=== PATIENT | male | born 1945 | race Caucasian/White ===

== ENCOUNTER 2024-04-09 16:36 | Inpatient (IN) ==
[2024-04-09 17:42] LABS: Appearance Urine Clear (Clear); Bacteria Urine Automated None Seen (None Seen); Bilirubin Urine Negative (Negative); Blood Urine 3+ (Negative); Cast Urine Automated 0-2 /lpf (0-2); Color Urine Yellow; Epithelial Cell Urine Auto 0-2 /hpf (0-2); Glucose Urine UA Negative (Negative); Ketones Urine Negative (Negative); Leukocyte Esterase Urine 1+ (Negative); Nitrite Urine Negative (Negative); Protein Urine Negative (Negative); RBC Urine Automated >20 /hpf (0-2); Specific Gravity Urine 1.018 (1.000-1.030); Urobilinogen Urine Negative (Negative)
[2024-04-09 17:43] LABS: Basophils # (auto) 0.03 K/uL (0.00-0.20); Basophils % (auto) 0.4 %; Eosinophils # (auto) 0.19 K/uL (0.00-0.50); Eosinophils % (auto) 2.6 %; Immature Granulocytes # (auto) 0.03 K/uL (0.01-0.20); Immature Granulocytes % (auto) 0.4 %; Lymphocytes # (auto) 1.36 K/uL (1.20-3.40); Lymphocytes % (auto) 18.9 %; Mean Corpuscular Hemoglobin 31.3 pg (25.0-34.0); Mean Corpuscular Hgb Conc 34.1 g/dL (32.0-36.0); Mean Corpuscular Volume 91.9 fL (80.0-100.0); Mean Platelet Volume 9.7 fL (9.4-12.4); Monocytes # (auto) 0.82 K/uL (0.11-0.59); Monocytes % (auto) 11.4 %; Neutrophils # (auto) 4.78 K/uL (1.40-6.50); Neutrophils % (auto) 66.3 %; Platelet Count 162 K/uL (130-400); RDW Coefficient of Variation 13.6 % (11.5-14.5); RDW Standard Deviation 46.6 fL (36.4-46.3); Red Blood Count 4.79 M/uL (4.70-6.10); White Blood Count 7.21 K/ul (4.8-10.8)
[2024-04-09 18:08] LABS: Albumin Globulin Ratio 1.5 (0.9-2); BUN Creatinine Ratio 14.8 (10-20); Calcium 9.6 mg/dl (8.6-10.3); Creatinine Clr Calc Pharmacy 37.9 ml/min; Globulin 2.7 gm/dl (2.5-4.0); Potassium 4.9 mmol/L (3.5-5.1); Total Protein 6.7 gm/dl (6.0-8.3)
[2024-04-09 18:10] LABS: Prothrombin Time 10.5 Seconds (9.0-12.0)
[2024-04-09] MEDS: OPTIRAY 320 100ml IV ONE (19:21)
--- NOTE | 2024-04-09 19:51 | Emergency Department Note ---
Impression & Plan Acute right flank pain, Hydroureteronephrosis, Right ureteral calculus, CKD (chronic kidney disease) ED Provider Note HISTORY OF PRESENT ILLNESS: Patient is a 78-year-old male presenting with right flank pain. Patient reports that he was at [facility] yesterday and diagnosed with a 7 mm kidney stone. He was planning to be transferred to [facility], but he states "I was told that the transport would be taking a while." He states that he was discharged from the hospital and he called his doctor who referred him to [facility] emergency department for urology consultation. Patient reports that he has not had pain since getting pain medications yesterday. He denies any dysuria or hematuria. Denies any fevers. Denies any nausea or vomiting. He reports he has a history of abdominal aortic aneurysm but has not had a monitoring of this in a while. He denies any chest pain or shortness of breath. ROS: as above PHYSICAL EXAM: Constitutional: Patient appears in no acute distress. HENT: Head: Normocephalic and atraumatic. Eyes: EOMI, PERRL Mouth/Throat: Mucous membranes moist. Neck: Trachea midline. Neck supple. Cardiovascular: RRR, No murmurs, rubs or gallops. Intact distal pulses. Pulmonary/Chest: No respiratory distress. Breath sounds clear and equal bilaterally. No wheezes or rales. Abdominal: Abdomen soft, no tenderness, rebound or guarding. Back: No midline spinal tenderness, no paraspinal tenderness, no CVA tenderness. Musculoskeletal: No edema, tenderness or deformity noted. Skin: Warm and dry. No rash, erythema, pallor or cyanosis Psychiatric: Appropriate mood and affect for situation. Neurological: Alert and keenly responsive. CN II-XII grossly intact, moving all extremities equally and fully. MDM: - Vitals signs showed hypertension - History obtained via patient. History as above. - Chronic conditions affecting care: none - Differential diagnoses include, but are not limited to: aortic dissection; UTI; pyelonephritis; ureteral stone; cholecystitis - Order placed for continuous cardiac monitoring. At this time, monitor showed rate of 61 bpm with normal sinus rhythm, per my interpretation. - External medical records reviewed. - Laboratory workup interpreted by myself showed normal WBC; normal PT/INR; stable electrolytes; elevated total bilirubin (2.0); CKD (Cr 1.82); normal lipase - UA negative for infection - CT abdomen/pelvis with IV contrast showed 7 mm stone in the right UVJ with right hydroureteronephrosis. - Discussed case with Bobby Nava PA-C with urology at 20:20. Reports patient can be admitted to medicine service and tentative plan for urological procedure tomorrow. - Discussion was had with community case manager about patient's case and need for admission - Hospitalist, Dr. Morgan, consulted for admission - [facility] ASSESSMENT AND PLAN: Diagnosis: acute right flank pain; right hydroureteronephrosis; right ureteral stone; CKD Plan: admit Past Med/Surg History Problem List (Updated 04/09/24 @ 22:07 by Clara Palumbo MD) CKD (chronic kidney disease) (Acute) Right ureteral calculus (Acute) Hydroureteronephrosis (Acute) Acute right flank pain (Acute) Nephrolithiasis Social History Smoking Status: Never smoker Feels Safe at Home: Yes Allergies Allergies Allergy/AdvReac Type Severity Reaction Status Date / Time Penicillins Allergy Unknown Verified 04/09/24 21:15 Results & Data (ED) Vital Signs Vital Signs - 24 hr 04/09/24 17:16 04/09/24 19:30 04/09/24 21:00 Temperature 36.2 C L Temperature Source Temporal Artery Scan Pulse Rate 58 L Pulse Rate [Apical] 67 61 Respiratory Rate 18 18 18 Respiratory Effort / Characteristics Non-Labored Respiratory Depth Normal Respiratory Pattern Regular Blood Pressure 151/88 H Blood Pressure [Right Arm] 138/92 157/86 H Blood Pressure Mean 109 Blood Pressure Mean [Right Arm] 107 109 Pulse Oximetry 96 97 99 Oxygen Delivery Method Room Air Room Air Room Air Sepsis Recent Fever Within 48 Hours No Sepsis New/Unexplained Change in Mental Status N/A Sepsis Action Taken by Nursing No Action Required Laboratory Data 04/09/24 17:25 04/09/24 17:25 Lab Results 04/09/24 04/09/24 Range/Units 17:25 Unknown WBC 7.21 (4.8-10.8) K/ul RBC 4.79 (4.70-6.10) M/uL Hgb 15.0 (14.0-18.0) g/dl Hct 44.0 (42.0-52.0) % MCV 91.9 (80.0-100.0) fL MCH 31.3 (25.0-34.0) pg MCHC 34.1 (32.0-36.0) g/dL RDW Std Deviation 46.6 H (36.4-46.3) fL RDW Coeff of Darci 13.6 (11.5-14.5) % Plt Count 162 (130-400) K/uL MPV 9.7 (9.4-12.4) fL Immature Gran % (Auto) 0.4 % Neut % (Auto) 66.3 % Lymph % (Auto) 18.9 % Dyer % (Auto) 11.4 % Eos % (Auto) 2.6 % Baso % (Auto) 0.4 % Neut # (Auto) 4.78 (1.40-6.50) K/uL Lymph # (Auto) 1.36 (1.20-3.40) K/uL Dyer # (Auto) 0.82 H (0.11-0.59) K/uL Eos # (Auto) 0.19 (0.00-0.50) K/uL Baso # (Auto) 0.03 (0.00-0.20) K/uL Immature Gran # (Auto) 0.03 (0.01-0.20) K/uL PT 10.5 (9.0-12.0) Seconds INR 1.0 (0.9-1.1) Sodium 140 (136-145) mmol/L Potassium 4.9 (3.5-5.1) mmol/L Chloride 109 H (98-107) mmol/L Carbon Dioxide 25 (21-32) mmol/L Anion Gap 6 (3-11) BUN 27 H (6-23) mg/dl Creatinine 1.82 H (0.6-1.4) mg/dl Est Cr Clr Drug Dosing 37.9 ml/min eGFR 38.02 BUN/Creatinine Ratio 14.8 (10-20) Glucose 106 H (70-99(Fasting)) mg/dl Lactate 1.4 (0.4-2.0) mmol/L Calcium 9.6 (8.6-10.3) mg/dl Total Bilirubin 2.0 H (0.2-1.0) mg/dl AST 14 (13-39) U/L ALT 11 (7-52) U/L Alkaline Phosphatase 51 (34-104) U/L Total Protein 6.7 (6.0-8.3) gm/dl Albumin 4.0 (3.4-5.0) gm/dl Globulin 2.7 (2.5-4.0) gm/dl Albumin/Globulin Ratio 1.5 (0.9-2) Lipase 52 (11-82) U/L Urine Color Yellow Urine Appearance Clear (Clear) Urine pH 5.0 (4.5-7.5) Ur Specific [place] 1.018 (1.000-1.030) Urine Protein Negative (Negative) Urine Glucose (UA) Negative (Negative) Urine Ketones Negative (Negative) Urine Blood 3+ H (Negative) Urine Nitrite Negative (Negative) Urine Bilirubin Negative (Negative) Urine Urobilinogen Negative (Negative) Ur Leukocyte Esterase 1+ H (Negative) Urine WBC (Auto) 11-20 H (0-5) /hpf Urine RBC (Auto) >20 H (0-2) /hpf U Hyaline Cast (Auto) 0-2 (0-2) /lpf U Epithel Cells (Auto) 0-2 (0-2) /hpf Urine Bacteria (Auto) None Seen (None Seen) Administered Medications Discontinued Medications Ioversol (Optiray 320 100ml) 91 ml IV ONCE ONE Stop: 04/09/24 19:22 Last Admin: 04/09/24 19:21 Dose: 91 ml Documented By: NORMA Miscellaneous Information (Patient's Allergy Info Needs Entered) 1 each N/A NOW STA Stop: 04/09/24 21:06 Last Admin: 04/09/24 21:25 Dose: Not Given Documented By: REBECCA Tamsulosin HCl (Tamsulosin Hcl 0.4 Mg Cap) 0.4 mg PO NOW ONE Stop: 04/09/24 21:03 Last Admin: 04/09/24 21:35 Dose: 0.4 mg Documented By: REBECCA Imaging Data Radiologist's Impression: Abdomen/Pelvis CT 04/09/24 17:08 Exam(s): CT ABDOMEN + PELVIS With Contrast IV Amt: 91 ml opti 320 EXAM: CT Abdomen and Pelvis With Intravenous Contrast CLINICAL HISTORY: Reason for exam: flank pain. TECHNIQUE: Axial computed tomography images of the abdomen and pelvis with intravenous contrast. CTDI is 18.98 mGy and DLP is 963.87 mGy-cm. Automated exposure control was utilized for the study. A dose lowering technique was utilized adhering to the principles of ALARA. CONTRAST: Patient received 91 ml opti 320 of IV contrast COMPARISON: None FINDINGS: Lung bases: Unremarkable. No mass. No consolidation. Mediastinum: Small hiatal hernia. ABDOMEN: Liver: Small hepatic cysts. Some of the hypodensities in the liver are too small to definitively characterize. Gallbladder and bile ducts: Unremarkable. No calcified stones. No ductal dilation. Pancreas: Unremarkable. No mass. No ductal dilation. Spleen: Unremarkable. No splenomegaly. Adrenals: Unremarkable. No mass. Kidneys and ureters: 7 mm stone in the region of the right UVJ. Mild right hydroureteronephrosis. Punctate inferior right renal stone. Small hypodensities in the kidneys are too small to definitively characterize. Punctate nonobstructing left renal stone. No hydronephrosis or ureteral stone on the left. Stomach and bowel: Evaluation of the stomach is limited by underdistention. Diverticulosis without evidence of diverticulitis. No small bowel obstruction. PELVIS: Appendix: Normal appendix. Bladder: 7 mm stone in the region of the right UVJ. Reproductive: Unremarkable as visualized. ABDOMEN and PELVIS: Intraperitoneal space: Unremarkable. No free air. No significant fluid collection. Bones/joints: Degenerative changes of the spine. Grade 1 anterolisthesis of L4 on L5. No acute fracture. No dislocation. Soft tissues: Small fat-containing umbilical hernia. Vasculature: Atherosclerotic changes of the vasculature. 4.3 cm distal abdominal aortic aneurysm. No aortic dissection. Lymph nodes: Unremarkable. No enlarged lymph nodes. IMPRESSION: 1. 7 mm stone in the region of the right UVJ. Mild right hydroureteronephrosis. Punctate inferior right renal stone. 2. Punctate nonobstructing left renal stone. No hydronephrosis or ureteral stone on the left. 3. Atherosclerotic changes of the vasculature. 4.3 cm distal abdominal aortic aneurysm. No aortic dissection. Electronically signed by: Krys Dinh M.D. 04/09/24 20:15 PM Discharge Plan Visit Data Chief Complaint: Kidney Stone Stated Complaint: REF BY DOC,KIDNEY STONE ED Provider: Polinski,Clara Z. Discharge Problem: Acute right flank pain, Hydroureteronephrosis, Right ureteral calculus, CKD (chronic kidney disease) Forms Stand Alone Forms: My [facility] Referrals Referrals: Walt Stevenson M.D. [Primary Care Provider] -
--- NOTE | 2024-04-09 20:16 | CT Scan Report ---
Exam(s): CT ABDOMEN + PELVIS With Contrast IV Amt: 91 ml opti 320 EXAM: CT Abdomen and Pelvis With Intravenous Contrast CLINICAL HISTORY: Reason for exam: flank pain. TECHNIQUE: Axial computed tomography images of the abdomen and pelvis with intravenous contrast. CTDI is 18.98 mGy and DLP is 963.87 mGy-cm. Automated exposure control was utilized for the study. A dose lowering technique was utilized adhering to the principles of ALARA. CONTRAST: Patient received 91 ml opti 320 of IV contrast COMPARISON: None FINDINGS: Lung bases: Unremarkable. No mass. No consolidation. Mediastinum: Small hiatal hernia. ABDOMEN: Liver: Small hepatic cysts. Some of the hypodensities in the liver are too small to definitively characterize. Gallbladder and bile ducts: Unremarkable. No calcified stones. No ductal dilation. Pancreas: Unremarkable. No mass. No ductal dilation. Spleen: Unremarkable. No splenomegaly. Adrenals: Unremarkable. No mass. Kidneys and ureters: 7 mm stone in the region of the right UVJ. Mild right hydroureteronephrosis. Punctate inferior right renal stone. Small hypodensities in the kidneys are too small to definitively characterize. Punctate nonobstructing left renal stone. No hydronephrosis or ureteral stone on the left. Stomach and bowel: Evaluation of the stomach is limited by underdistention. Diverticulosis without evidence of diverticulitis. No small bowel obstruction. PELVIS: Appendix: Normal appendix. Bladder: 7 mm stone in the region of the right UVJ. Reproductive: Unremarkable as visualized. ABDOMEN and PELVIS: Intraperitoneal space: Unremarkable. No free air. No significant fluid collection. Bones/joints: Degenerative changes of the spine. Grade 1 anterolisthesis of L4 on L5. No acute fracture. No dislocation. Soft tissues: Small fat-containing umbilical hernia. Vasculature: Atherosclerotic changes of the vasculature. 4.3 cm distal abdominal aortic aneurysm. No aortic dissection. Lymph nodes: Unremarkable. No enlarged lymph nodes. IMPRESSION: 1. 7 mm stone in the region of the right UVJ. Mild right hydroureteronephrosis. Punctate inferior right renal stone. 2. Punctate nonobstructing left renal stone. No hydronephrosis or ureteral stone on the left. 3. Atherosclerotic changes of the vasculature. 4.3 cm distal abdominal aortic aneurysm. No aortic dissection. Electronically signed by: Krys Dinh M.D. 04/09/24 20:15 PM
--- NOTE | 2024-04-09 20:47 | Urology Consultation ---
Date of Consultation April 09, 2024 Assessment & Plan (1) Nephrolithiasis: I discussed with the treating emergency room physician the patient is being admitted on the hospital service. From a urologic perspective we recommend the following: Provide analgesics provide antiemetics hydrate with IV fluids Would recommend initiating Flomax for expulsive therapy The patient does have an abnormal urinalysis and a urine culture has been sent. Would recommend monitoring the patient's culture results and initiate antibiotics as indicated Patient does have a creatinine of 1.8. As the patient receives his medical care through the [facility] we do not have comparison labs available we will therefore avoid nephrotoxins and repeat labs in the morning Would implement n.p.o. status Patient be reassessed the morning of 04/10/[address] Dustin Campos of [facility] physician group urology and a determination be made if patient will require cystoscopic intervention Additional recommendations with forthcoming based on his clinical course as it unfolds History of Present Illness Reason for Consultation: Nephrolithiasis History of Present Illness This is a 78-year-old male who presented to the emergency department secondary to right-sided flank pain. The patient says that the pain began approximate 24 hours ago. He has no prior history of kidney stones and has never experienced pain like this before. He does note that the pain was confined to his right flank without radiation. He did not report any modifying factors other than medicines that were administered at a previous facility (he did initially seek care at [facility]). Patient denies any nausea or vomiting. He has not had any fevers, shakes, or chills. He does report some dysuria at the end of his urine stream and denies any hematuria. He says he does have a urologist to do boys, but was directed to [facility] by the staff at the [facility]. Since arrival to the emergency department this man has had labs and imaging which I independently reviewed. He did have a CT scan of the abdomen pelvis that shows he has a 7 mm kidney stone at the right ureterovesical junction with right-sided hydronephrosis. Labs include a CBC were white blood cell count, hemoglobin, hematocrit, platelet count were normal. Coagulation studies were normal. Chemistry profile showed sodium and potassium are normal. His BUN and creatinine were 27 and 1.8. (Patient had no prior visits that would allow for labs to be compared). The urinalysis was negative for nitrites. It did have 1+ leukocyte Estrace and 11-20 white blood cells per high-power field. There is no bacteria on the study. At the time of my interview he was resting comfortably bed and he was in no distress. Patient History Social History Smoking Status: Never smoker Feels Safe at Home: Yes Review of Systems Review of Systems: All systems reviewed & are unremarkable except as noted in HPI & below Physical Exam Constitutional: WD/WN, vitals as above Eyes: no conjunctival abnormality ENMT: Ears: no hearing impairment and no external ear abnormality Mouth: + oropharynx abnormality Neck: trachea midline Respiratory: normal respiratory effort; no respiratory distress and no labored breathing Cardiovascular: Rate/Rhythm: regular rate and regular rhythm Gastrointestinal (Abdomen): Soft and nontender. Musculoskeletal: No calf tenderness Skin: no rashes Neurologic: moves all extremities Psychiatric: A+Ox3, euthymic affect Genitourinary: At the time of my interview the patient had no CVA tenderness with percussion bilaterally Results & Data Vital Signs (Past 12 Hours) Vital Signs Temp Pulse Pulse Resp BP BP Pulse Ox 04/09/24 19:30 67 18 138/92 97 04/09/24 17:16 36.2 C L 58 L 18 151/88 H 96 O2 Del Method 04/09/24 19:30 Room Air 04/09/24 17:16 Room Air PG Care Time/CCT Total # of Minutes Spent Total Time Spent with Patient: Total time spent is greater than 50% in coordination of care (as documented) at patient's floor/unit and/or counseling patient: Coding Level of Care Code 01072 INT INP/OBS CARE 375MIN Diagnoses Nephrolithiasis N20.0
[2024-04-09] MEDS: Patient's ALLERGY Info needs ENTERED STA (21:25)
[2024-04-09] MEDS ORDERED: oxyCODONE HCL IR 5 MG TAB (IMMEDIATE RELEASE) PO PRN (21:29)
[2024-04-09] MEDS ORDERED: ACETAMINOPHEN 325 MG TAB PO PRN (21:29)
[2024-04-09] MEDS ORDERED: PROMETHAZINE 6.25 MG/50.25 ML BAG IV PRN (21:29)
--- NOTE | 2024-04-09 21:31 | History & Physical Report ---
Date of Service April 09, 2024 Assessment & Plan (1) ARF (acute renal failure): Plan: Secondary to obstructive uropathy No sepsis for now hypertension, GERD, stable on PPI AAA incidental finding on imaging Past tobacco abuse MedSurg Monitor creatinine response to IVF Strain urine Urology consult re: obstructing kidney stone (Patient already seen by provider at the ER who recommends Flomax and n.p.o. status in anticipation of procedure in a.m.) Outpatient surveillance follow-up imaging for AAA and vascular surgery consultation. DVT prophylaxis. SCDs Full code Text document was generated using [employer] voice recognition software. It may contain grammatical or spelling errors. Kindly contact undersigned for clarification of any documentation item in question. History of Present Illness Chief Complaint: Kidney stone Primary Care Provider: Walt Stevenson History obtained from patient and records. Medical history significant for hypertension, GERD, urolithiasis, past tobacco abuse. Patient woke up yesterday with achy left flank pain going to his belly. No hematuria, no fever, no chills. No chest pain, no SOB. No prior episodes. Patient seen at [facility] ER. CT showed kidney stones with blockage. Patient left ER because they were waiting too long. He was advised to call local urologist from [place]. Provider recommended he go to [facility] for urology services. Medical History as above Surgical History : Hernia surgery Family History : Hypertension, DM Personal/Social history : Past tobacco abuse, occasional EtOH intake, retired from factory work (light bulbs) Allergies Allergy/AdvReac Type Severity Reaction Status Date / Time Penicillins Allergy Unknown Verified 04/09/24 21:15 Home Medications Medication Instructions Recorded Confirmed Type ketorolac 10 mg tablet 10 mg PO Q6 PRN Pain 04/09/24 04/09/24 History meloxicam 15 mg tablet 15 mg PO DAILY 04/09/24 04/09/24 History metoprolol succinate 25 mg 25 mg PO DAILY 04/09/24 04/09/24 History tablet,extended release 24 hr omeprazole 20 mg capsule,delayed 20 mg PO DAILY 04/09/24 04/09/24 History release ondansetron HCl 4 mg tablet 4 mg PO Q6 PRN Nausea And Vomiting 04/09/24 04/09/24 History tamsulosin 0.4 mg capsule 0.4 mg PO DAILY 04/09/24 04/09/24 History Past Med/Surg History Problem List (Updated 04/10/24 @ 01:17 by Ankit Morgan MD) ARF (acute renal failure) CKD (chronic kidney disease) (Acute) Right ureteral calculus (Acute) Hydroureteronephrosis (Acute) Acute right flank pain (Acute) Nephrolithiasis Social History Smoking Status: Former smoker Tobacco Type: Cigarettes Smoking End Date: 04/03/1974; Second Hand Exposure: No; Do You Dip or Chew Tobacco: No; Hx Alcohol Use: Yes Alcohol type: beer and wine Hx Substance Use: No Preferred Language: [place] Communication Ability: Effective Rack Pusher Required: No Beliefs That Will Affect Care: None Current Living Situation: Spouse Other Information That Helps Us Care for You: No Feels Safe at Home: Yes Assistive Devices: None Review of Systems Review of Systems: As per HPI, all other systems reviewed and negative Physical Exam Physical Exam: GENERAL: Comfortable, pleasant, no respiratory distress SKIN: Normal color, warm HEENT: Bespectacled, pink palpebral conjunctivae, no ptosis, dry buccal mucosa NECK : Supple, no tenderness CHEST : CTA, no tenderness HEART : RRR, no obvious murmurs ABDOMEN: Some distention, minimal left line tenderness EXTREMITIES : No LE swelling/tenderness, no other conspicuous deformities noted NEUROLOGIC : Coherent, no facial asymmetry, no other gross focality Results & Data Results & Data Vital Signs (Past 12 Hours) Vital Signs Temp Pulse Pulse Resp BP BP Pulse Ox 04/09/24 21:00 61 18 157/86 H 99 04/09/24 19:30 67 18 138/92 97 04/09/24 17:16 36.2 C L 58 L 18 151/88 H 96 O2 Del Method 04/09/24 21:00 Room Air 04/09/24 19:30 Room Air 04/09/24 17:16 Room Air Laboratory Results Laboratory Results WBC 7.21 K/ul (4.8-10.8) 04/09/24 17:25 RBC 4.79 M/uL (4.70-6.10) 04/09/24 17:25 Hgb 15.0 g/dl (14.0-18.0) 04/09/24 17:25 Hct 44.0 % (42.0-52.0) 04/09/24 17:25 MCV 91.9 fL (80.0-100.0) 04/09/24 17:25 MCH 31.3 pg (25.0-34.0) 04/09/24 17: MCHC 34.1 g/dL (32.0-36.0) 04/09/24 17:25 RDW Std Deviation 46.6 fL (36.4-46.3) H 04/09/24 17: RDW Coeff of Darci 13.6 % (11.5-14.5) 04/09/24 17: Plt Count 162 K/uL (130-400) 04/09/24 17: MPV 9.7 fL (9.4-12.4) 04/09/24 17:25 Immature Gran % (Auto) 0.4 % 04/09/24 17:25 Neut % (Auto) 66.3 % 04/09/24 17:25 Lymph % (Auto) 18.9 % 04/09/24 17:25 Gila % (Auto) 11.4 % 04/09/24 17:25 Eos % (Auto) 2.6 % 04/09/24 17:25 Baso % (Auto) 0.4 % 04/09/24 17:25 Neut # (Auto) 4.78 K/uL (1.40-6.50) 04/09/24 17:25 Lymph # (Auto) 1.36 K/uL (1.20-3.40) 04/09/24 17:25 Gila # (Auto) 0.82 K/uL (0.11-0.59) H 04/09/24 17:25 Eos # (Auto) 0.19 K/uL (0.00-0.50) 04/09/24 17:25 Baso # (Auto) 0.03 K/uL (0.00-0.20) 04/09/24 17:25 Immature Gran # (Auto) 0.03 K/uL (0.01-0.20) 04/09/24 17:25 PT 10.5 Seconds (9.0-12.0) 04/09/24 17:25 INR 1.0 (0.9-1.1) 04/09/24 17:25 Sodium 140 mmol/L (136-145) 04/09/24 17:25 Potassium 4.9 mmol/L (3.5-5.1) 04/09/24 17:25 Chloride 109 mmol/L (98-107) H 04/09/24 17:25 Carbon Dioxide 25 mmol/L (21-32) 04/09/24 17:25 Anion Gap 6 (3-11) 04/09/24 17:25 BUN 27 mg/dl (6-23) H 04/09/24 17:25 Creatinine 1.82 mg/dl (0.6-1.4) H 04/09/24 17:25 Est Cr Clr Drug Dosing 37.9 ml/min 04/09/24 17:25 eGFR 38.02 04/09/24 17:25 BUN/Creatinine Ratio 14.8 (10-20) 04/09/24 17:25 Glucose 106 mg/dl (70-99(Fasting)) H 04/09/24 17:25 Lactate 1.4 mmol/L (0.4-2.0) 04/09/24 17:25 Calcium 9.6 mg/dl (8.6-10.3) 04/09/24 17:25 Total Bilirubin 2.0 mg/dl (0.2-1.0) H 04/09/24 17:25 AST 14 U/L (13-39) 04/09/24 17:25 ALT 11 U/L (7-52) 04/09/24 17:25 Alkaline Phosphatase 51 U/L (34-104) 04/09/24 17:25 Total Protein 6.7 gm/dl (6.0-8.3) 04/09/24 17:25 Albumin 4.0 gm/dl (3.4-5.0) 04/09/24 17:25 Globulin 2.7 gm/dl (2.5-4.0) 04/09/24 17:25 Albumin/Globulin Ratio 1.5 (0.9-2) 04/09/24 17:25 Lipase 52 U/L (11-82) 04/09/24 17:25 Urine Color Yellow 04/09/24 Unknown Urine Appearance Clear (Clear) 04/09/24 Unknown Urine pH 5.0 (4.5-7.5) 04/09/24 Unknown Ur Specific [place] 1.018 (1.000-1.030) 04/09/24 Unknown Urine Protein Negative (Negative) 04/09/24 Unknown Urine Glucose (UA) Negative (Negative) 04/09/24 Unknown Urine Ketones Negative (Negative) 04/09/24 Unknown Urine Blood 3+ (Negative) H 04/09/24 Unknown Urine Nitrite Negative (Negative) 04/09/24 Unknown Urine Bilirubin Negative (Negative) 04/09/24 Unknown Urine Urobilinogen Negative (Negative) 04/09/24 Unknown Ur Leukocyte Esterase 1+ (Negative) H 04/09/24 Unknown Urine WBC (Auto) 11-20 /hpf (0-5) H 04/09/24 Unknown Urine RBC (Auto) >20 /hpf (0-2) H 04/09/24 Unknown U Hyaline Cast (Auto) 0-2 /lpf (0-2) 04/09/24 Unknown U Epithel Cells (Auto) 0-2 /hpf (0-2) 04/09/24 Unknown Urine Bacteria (Auto) None Seen (None Seen) 04/09/24 Unknown Impressions Abdomen/Pelvis CT 04/09/24 17:08 Exam(s): CT ABDOMEN + PELVIS With Contrast IV Amt: 91 ml opti 320 EXAM: CT Abdomen and Pelvis With Intravenous Contrast CLINICAL HISTORY: Reason for exam: flank pain. TECHNIQUE: Axial computed tomography images of the abdomen and pelvis with intravenous contrast. CTDI is 18.98 mGy and DLP is 963.87 mGy-cm. Automated exposure control was utilized for the study. A dose lowering technique was utilized adhering to the principles of ALARA. CONTRAST: Patient received 91 ml opti 320 of IV contrast COMPARISON: None FINDINGS: Lung bases: Unremarkable. No mass. No consolidation. Mediastinum: Small hiatal hernia. ABDOMEN: Liver: Small hepatic cysts. Some of the hypodensities in the liver are too small to definitively characterize. Gallbladder and bile ducts: Unremarkable. No calcified stones. No ductal dilation. Pancreas: Unremarkable. No mass. No ductal dilation. Spleen: Unremarkable. No splenomegaly. Adrenals: Unremarkable. No mass. Kidneys and ureters: 7 mm stone in the region of the right UVJ. Mild right hydroureteronephrosis. Punctate inferior right renal stone. Small hypodensities in the kidneys are too small to definitively characterize. Punctate nonobstructing left renal stone. No hydronephrosis or ureteral stone on the left. Stomach and bowel: Evaluation of the stomach is limited by underdistention. Diverticulosis without evidence of diverticulitis. No small bowel obstruction. PELVIS: Appendix: Normal appendix. Bladder: 7 mm stone in the region of the right UVJ. Reproductive: Unremarkable as visualized. ABDOMEN and PELVIS: Intraperitoneal space: Unremarkable. No free air. No significant fluid collection. Bones/joints: Degenerative changes of the spine. Grade 1 anterolisthesis of L4 on L5. No acute fracture. No dislocation. Soft tissues: Small fat-containing umbilical hernia. Vasculature: Atherosclerotic changes of the vasculature. 4.3 cm distal abdominal aortic aneurysm. No aortic dissection. Lymph nodes: Unremarkable. No enlarged lymph nodes. IMPRESSION: 1. 7 mm stone in the region of the right UVJ. Mild right hydroureteronephrosis. Punctate inferior right renal stone. 2. Punctate nonobstructing left renal stone. No hydronephrosis or ureteral stone on the left. 3. Atherosclerotic changes of the vasculature. 4.3 cm distal abdominal aortic aneurysm. No aortic dissection. Electronically signed by: Krys Dinh M.D. 04/09/24 20:15 PM Diagnostic Findings Chest x-ray as per my interpretation atelectasis
[2024-04-09] MEDS: TAMSULOSIN HCL 0.4 MG CAP PO ONE (21:35)
[2024-04-09] MEDS ORDERED: HYDROmorphone INJ 0.5 MG/0.5 ML SYR IV PRN (21:57)
--- NOTE | 2024-04-09 22:54 | XRay Report ---
Exam(s): XR CXR 1 VIEW EXAM: XR Chest, 1 View CLINICAL HISTORY: Reason for exam: renal failure. TECHNIQUE: Frontal view of the chest. COMPARISON: No relevant prior studies available. FINDINGS: Lungs: There are linear densities at the left lung base. No consolidation. Pleural space: No pleural effusion is seen.. No pneumothorax. Heart: Heart is normal in size.. Mediastinum: There is mild uncoiling of thoracic aorta.. Bones/joints: There are degenerative changes in the spine.. IMPRESSION: There are some mild scarring or atelectasis at the left lung base.. Electronically signed by: Kaleb Mccabe MD 04/09/24 22:54 PM
[2024-04-09] MEDS: SODIUM CHLORIDE 0.9% 1,000 ML IV ONE (22:55)
[2024-04-10 06:34] LABS: Calcium 9.1 mg/dl (8.6-10.3); Potassium 4.7 mmol/L (3.5-5.1)
[2024-04-10 06:40] LABS: BUN Creatinine Ratio 15.2 (10-20)
[2024-04-10 06:43] LABS: Hematocrit (blood only) 41.2 % (42.0-52.0); Hemoglobin 13.9 g/dl (14.0-18.0); Mean Corpuscular Hemoglobin 31.2 pg (25.0-34.0); Mean Corpuscular Hgb Conc 33.7 g/dL (32.0-36.0); Mean Corpuscular Volume 92.4 fL (80.0-100.0); Mean Platelet Volume 9.9 fL (9.4-12.4); Platelet Count 149 K/uL (130-400); RDW Coefficient of Variation 13.6 % (11.5-14.5); RDW Standard Deviation 46.5 fL (36.4-46.3); Red Blood Count 4.46 M/uL (4.70-6.10); White Blood Count 6.33 K/ul (4.8-10.8)
[2024-04-10 07:21] VITALS: BP 158/87; PULSE 60; RESP 18; TEMP 97.9; O2SAT 97
[2024-04-10] MEDS: SODIUM CHLORIDE 0.9% 1,000 ML IV ONE (07:25)
--- NOTE | 2024-04-10 08:09 | Urology Progress Note ---
Date of Service April 10, 2024 Assessment & Plan (1) Right ureteral calculus: (2) Nephrolithiasis: (3) ARF (acute renal failure): Plan This is a 78-year-old male with a right ureteral stone. Although creatinine was elevated upon arrival, it has returned largely to normal limits. Low suspicion for infection at this point. Since his pain is well-controlled, we discussed a trial of medical expulsive therapy and intervention as an outpatient. We discussed the alternative of cystoscopy, right retrograde pyelogram and right ureteral stent placement. We reviewed risks and benefits of surgery as well as the chance that if we put him this time he would likely require another procedure to remove the stone. For now, he would like to avoid a stent if possible, therefore we will hold off intervention today. Plan: Hold off on surgical intervention for now Ok for him to have a diet for now Pain control with p.o. medications If pain remains well-controlled, okay for discharge home with outpatient follow- up with If he starts to have uncontrollable pain, we will tentatively plan on stent on 04/11. Admission and Anticipated Discharge Date Admission Date: April 09, 2024 Subjective 78-year-old male with right UVJ stone Feeling well this morning Denies any fevers or chills Denies any nausea or vomiting, not having significant pain Has not passed the stone to the best of his knowledge Physical Exam Physical Exam: Resting comfortably in bed, NAD Results & Data Vital Signs (Past 12 Hours) Vital Signs Temp Pulse Resp BP Pulse Ox O2 Del Method 04/10/24 07:21 36.6 C 60 18 158/87 H 97 Room Air 04/10/24 03:13 Room Air 04/09/24 23:41 36.9 C 74 16 153/75 H 96 Room Air 04/09/24 22:56 69 16 158/100 H 95 Room Air 04/09/24 21:00 61 18 157/86 H 99 Room Air PG Care Time/CCT Total # of Minutes Spent Total Time Spent with Patient: Total time spent is greater than 50% in coordination of care (as documented) at patient's floor/unit and/or counseling patient: Coding Level of Care Code 55328 SUB INP/OBS CARE 1/25MIN Diagnoses Right ureteral calculus N20.1 Nephrolithiasis N20.0 ARF (acute renal failure) N17.9
[2024-04-10 08:56] LABS: Basophils # (auto) 0.04 K/uL (0.00-0.20); Basophils % (auto) 0.6 %; Eosinophils # (auto) 0.27 K/uL (0.00-0.50); Eosinophils % (auto) 4.3 %; Immature Granulocytes # (auto) 0.01 K/uL (0.01-0.20); Immature Granulocytes % (auto) 0.2 %; Lymphocytes # (auto) 1.32 K/uL (1.20-3.40); Lymphocytes % (auto) 20.9 %; Monocytes # (auto) 0.83 K/uL (0.11-0.59); Monocytes % (auto) 13.1 %; Neutrophils # (auto) 3.86 K/uL (1.40-6.50); Neutrophils % (auto) 60.9 %
[2024-04-10] MEDS: METOPROLOL SUCC 25MG EXT REL TAB PO SCH (09:28)
[2024-04-10] MEDS: PANTOprazole 40 MG TAB PO SCH (09:28)
--- NOTE | 2024-04-10 09:37 | Discharge Summary ---
Date of Service April 10, 2024 Admission HPI Per Admitting Provider Mr. Bae is a 78-year-old male who presented to the ED secondary to right-sided flank pain that began 24 hours ago. He has no prior history of kidney stones and has never experienced pain like this before, but that the pain did not radiate. He did initially seek care at [facility] and ). Patient denies any nausea or vomiting. He has not had any fevers, shakes, or chills. He does report some dysuria at the end of his urine stream and denies any hematuria. He says he does have a urologist in [place], but was Was instructed to proceed to the [facility]. Upon arrival no leukocytosis, CTAP revealed 7 mm kidney stone at the right ureterovesical junction with right-sided hydronephrosis. Coag and CHEM panel normal. Creatinine 1.8 on admission with no prior visits for comparison. Urinalysis negative for nitrates; 1+ leukocyte esterase no bacteria on the study. Admission Exam Per Admitting Provider GENERAL: Comfortable, pleasant, no respiratory distress SKIN: Normal color, warm HEENT: Bespectacled, pink palpebral conjunctivae, no ptosis, dry buccal mucosa NECK : Supple, no tenderness CHEST : CTA, no tenderness HEART : RRR, no obvious murmurs ABDOMEN: Some distention, minimal left line tenderness EXTREMITIES : No LE swelling/tenderness, no other conspicuous deformities noted NEUROLOGIC : Coherent, no facial asymmetry, no other gross focality Principal Diagnosis acute 7 mm kidney stone at the right ureterovesical junction with right-sided hydronephrosis. Discharge Exam Neuro: AAOx4, PERRLA, no aphagia, memory changes, CNII-XII grossly intact HEENT: head normocephalic, moist mucus membranes CV: S1/S2, (-) M/G/R, (-) edema, cap refill < 3 seconds Resp: Lungs CTA in all negron. On RA GI: Abdomen S/NT/ND, Ax4 bowel sounds, (-) CVA tenderness Musculoskeletal: 5/5 B/L UE strength, 5/5 B/L LE strength. No gait disturbance Skin: (-) rashes , (-) erythema. Psych: euthymic mood Discharge Data Allergies Allergy/AdvReac Type Severity Reaction Status Date / Time Penicillins Allergy Unknown Verified 04/09/24 21:15 Consultations 04/09/24 21:25 ED Decision to Admit Stat 04/09/24 23:40 Consult Urology Routine Procedures Performed Operation Date: 04/10/24 10:00 <No data on this case meets the specified criteria> Ordered Studies 04/09/24 17:08 CT abd pelvis IV con only Stat Total Time Total Time Spent Total Time Spent (In Minutes): I spent a total of 58 minutes coordinating, documenting, and providing care for this patient excluding time spent in the performance of separately billed services. All of the aforementioned completed while collaborating with the assigned attending physician for a full treatment plan. Please see their addendum for further details. Discharge Plan Discharge Items Patient Disposition: Home - Self-Care Reason For Visit: OBS UROPATHY Discharge Diagnosis: kidney stone Condition on Discharge: Good Activity: Resume your previous activity Lifting: Wait until after follow-up appointment Bathing: No limitations Weightbearing: Full weightbearing Non-emergency contact: Primary Care Provider and Urologist Call non-emergency contact if: you have any medication questions, your symptoms worsen, your pain is not controlled, your pain is worsening, your pain is unusual for you, your pain is concerning for you, you have a fever and your temperature is above 101.5 Follow-up/Referrals: Walt Stevenson M.D. [Primary Care Provider] - Diet: Heart Healthy Addtl Attending Provider Instructions: You were admitted to the [facility] emergency department as recommended by your urologist in [place] secondary to right sided kidney pain. You indicated that you had no prior history of kidney stones. A CT scan was performed in the ED of your abdomen and/pelvis that revealed a 7 mm kidney stone in the right utero vesicle junction. A urinalysis was performed and negative for urinary tract infection. You were evaluated by urology here and discussion was held regarding intervention versus conservative management. It was decided that he would like to proceed with conservative approach to your care at this time. Typically it is difficult for a kidney stone larger than 6 mm to pass on its own requiring surgical intervention. We do support you returning home to determine and see how your symptoms continue. Should you develop any fever/chills, SOB, chest pain, worsening or increasing pain we would recommend returning to the emergency department for further evaluation and possible surgical intervention depending on urology recommendations. MEDICATION CHANGES: Continue your home medications as prescribed. Per discussion with you you do have an oxy codon prescription at home. Continue taking Flomax daily for the next 30 days. Recommend increasing fluid intake spread throughout your day to increase urine flow rate. Limit sodium intake Increase fruit and vegetable intake SUMMARY OF TEST RESULTS: CT scan of abdomen/pelvis: 7 mm stone in the region of the right UVJ. Mild rig ht hydroureteronephrosis. Punctate inferior right renal stone. Punctate nonobstructing left renal stone. No hydronephrosis or ureteral stone on the left. Atherosclerotic changes of the vasculature. 4.3 cm distal abdominal aortic aneurysm. No aortic dissection. Chest X-ray: There are some mild scarring or atelectasis at the left lung base. RECOMMENDATIONS FOR FOLLOW-UP: Will recommend follow-up with your primary care provider; will contact you on Friday with follow-up date/time. Urology will be arranging an outpatient follow-up to continue evaluation with you. OTHER INSTRUCTIONS: Seek medical attention if you have: * temperature above 101 * chest pain or trouble breathing * abdominal pain, nausea, vomiting *worsening abdominal or flank pain * diarrhea, dark stools or bloody stools * any unanswered questions or concerns Call 911 if symptoms are severe. Please take good care of yourself. It has been a pleasure taking care of you. Please take care of yourself. If you have any questions regarding your recent hospitalization please contact [facility] and request Amanda Werner @ [phone]. Pending Studies at Discharge: No Stand-Alone Forms: My [facility], Smoking Cessation Medications and DC Order Prescriptions: New metoprolol succinate 25 mg Tablet Extended Release 24 Hr 25 mg PO DAILY Qty: 30 0RF Continued omeprazole 20 mg capsule,delayed release(DR/EC) 20 mg PO DAILY metoprolol succinate 25 mg tablet extended release 24 hr 25 mg PO DAILY tamsulosin 0.4 mg capsule 0.4 mg PO DAILY 30 Days Qty: 30 0RF Discontinued meloxicam 15 mg tablet 15 mg PO DAILY ondansetron HCl 4 mg tablet 4 mg PO Q6 PRN (Reason: Nausea And Vomiting) ketorolac 10 mg tablet 10 mg PO Q6 PRN (Reason: Pain) Discharge Orders: Discharge Order (Routine); Ordered 04/10/24 Ordered By: Maine Johnson/Other Patient Handouts: Kidney Stones: Your Evaluation Admission Data Admit Date/Time: 04/09/24 21:56 Attending Provider: Brian Bynum Admit Provider: Ankit Morgan Primary Care Provider: Walt Stevenson Other Providers: Ankit Morgan; Eliel Mariscal; Luz Nolasco; Elmer Ortega; Barbara Chin; Sury Gale; Dusty Campos; Aliya March; Walt Chopra; Daniel Woodruff; Marv Kenyon Other Interventions: Discharge Summary Assessment (RN) Last Done: 04/10/24 11:54 Supervising Physician Co-Signing Physician Notes Patient seen and examined at bedside. He reports resolution of pain and discomfort. He has not required any pain medications so far during the hospitalization. He was seen by urology who recommended outpatient follow-up for definitive management of stone which patient is agreeable with. Patient has prescription of oxycodone; patient to be provided prescription for Flomax. I have reviewed the advanced practitioner's documentation, and I agree with, and take responsibility for the plan of care I spent a total of 20 minutes coordinating, documenting, and providing care for this patient excluding time spent in the performance of separately billed services. All of the aforementioned completed while collaborating with the assigned advanced practitioner for a full treatment plan
[2024-04-10] MEDS ORDERED: TAMSULOSIN HCL 0.4 MG CAP PO SCH (21:00)
== END 2024-04-10 14:31 | disposition home or self-care (01) | DRG 694 ==
LOC: ED 16:36 → 3W 21:56 → INTOOBSV 21:56 → OBSVTOIN 21:56 → 3W 23:05